=== PATIENT | female | born 1995 | race Caucasian/White ===

== ENCOUNTER 2017-08-07 23:16 | Emergency (ER) | payer BC ==
[2017-08-07 23:22] VITALS: BMI 32.4
[2017-08-07] MEDS ORDERED: TORADOL 60 MG VIAL IM ONE (23:30)
[2017-08-07] MEDS ORDERED: PHENERGAN INJ 25 MG IM ONE (23:31)
--- NOTE | 2017-08-07 23:35 | DR.GENAD ---
HPI - PCP Primary Care Physician: mejia - HPI Comment HPI Comment: Headache since about 2100 hrs. while in [place] this evening. Location is occipital and radiates to frontal areal. She has associated nausea but no vomitting. There was no changes in vision. She states she passed out for a few minutes. There was no seizure activity or incontinence of bladder or feces. She has a hx. headaches and has Fioricet to take q 8 hrs. prn. She had taken a dose at 2120 hrs. - Complaint/Symptoms Chief Complaint:: pt c/o headache so bad it made her pass out for about 4 or 5 minutes - Nurses notes reviewed Nurses Notes Review: Yes - Source History Provided: Patient - Mode of Arrival Mode of Arrival: Ambulatory - Timing Onset of Chief Complaint: 08/07/17 - Modifying Factors Worsens:: nothing Improves:: nothing - Associated Signs and Symptoms Associated Signs and Symptoms: nausea PMH - PMH Past Medical History: Yes Past Medical History: Migraines, Headaches Past Surgical History: Yes Surgical History: Appendectomy, Cholecystectomy - Family History History of Family Medical Conditions: Yes Family Medical History: Diabetes Mellitus, Hypertension - Social History Do you use any recreational Drugs:: No Lives With: Family Lives Where: Home - infectious screening In the last 2 months have you had wt loss of >10#?: NO Have you had fever, night sweats or hemotysis?: No Have you traveled outside the country in the last 6 months?: No Isolation: Standard ROS - Review of Systems Constitutional: No Symptoms Reported Eyes: No Symptoms Reported ENTM: No Symptoms Reported Respiratoy: No Symptoms Reported Cardiovascular: No Symptoms Reported Gastrointestinal/Abdominal: Nausea Genitourinary: No Symptoms Reported Neurological: Headache Musculoskeletal: No Symptoms Reported Integumentary: No Symptoms Reported Hematologic/Lymphatic: No Symptoms Reported Endocrine: No Symptoms Reported Psychiatric: No Symptoms Reported All Other Systems: Reviewed and Negative PE - Vital Signs Vitals: Temperature 98.3 F Pulse Rate 92 Respiratory Rate 18 Blood Pressure [Left Arm] 135/80 Blood Pressure 141/89 O2 Sat by Pulse Oximetry 98 - General Limitations: No Limitations General Appearance: Alert, In No Apparent Distress - Head Head Exam: Normal Inspection - Eyes Eye exam: Normal Appearance, PERRL, EOMI - ENT ENT Exam: Normal Exam - Neck Neck Exam: Normal Inspection, Full ROM - Chest Chest Inspection: Normal Inspection - Respiratory Respiratory Exam: Normal Lung Sounds Bilat - Cardiovascular Cardiovascular Exam: Regular Rate, Normal Rhythm, Normal Heart Sounds - Abdominal Exam Abdominal Exam: Normal Inspection, Normal Bowel Sounds, Soft - Extremities Extremities Exam: Normal Inspection - Back Back Exam: Normal Inspection - Neurologic Neurological Exam: Alert, Oriented X3, CN II-XII Intact - Psychiatric Psychiatric Exam: Normal Affect, Normal Mood - Skin Skin Exam: Warm, Dry, Intact, Normal Color Course - Reevaluation 1st: Unchanged 2nd: Unchanged (she states she still has the headache but yet refused the analgesic offered.) - Education/Counseling Education/Counseling: Patient, Family Educated On: Treatment, Diagnosis, Needs for Follow Up - Diagnosis Discharge Problem: Headache, Syncope and collapse - Discharge Plan Disposition: 01 HOME, SELF-CARE Condition: Stable - Follow ups/Referrals Follow ups/Referrals: SPENSER BROWN [Primary Care Provider] - 3 days - Instructions Instructions: Migraine Headache, [id number]
[2017-08-07] MEDS ORDERED: TORADOL 60 MG VIAL ONE (23:48)
[2017-08-07] MEDS ORDERED: PHENERGAN INJ 25 MG ONE (23:48)
[2017-08-08] MEDS ORDERED: NUBAIN INJ 200 MG VIAL MULTIDOSE IVP ONE (00:22)
[2017-08-08] MEDS ORDERED: ZOFRAN INJ 4 MG VIAL IVP ONE (00:24)
[2017-08-08] MEDS ORDERED: NUBAIN INJ 10 ONE (02:29)
[2017-08-08] MEDS ORDERED: ZOFRAN INJ 4 MG VIAL ONE (02:29)
[2017-08-08] MEDS ORDERED: NORCO 7.5/325 MG TAB PO ONE (02:35)
[2017-08-08] MEDS ORDERED: NORCO 7.5/325 MG TAB ONE (02:37)
[2017-08-08 03:10] VITALS: BP 123/76
== END 2017-08-08 03:10 | disposition home or self-care (01) ==
LOC: ER 23:25
DX: R51 Headache (principal); R55 Syncope and collapse
CPT/HCPCS: 96372; 99282; J1885; J2300; J2405; J2550

== ENCOUNTER → 2017-08-24 | Outpatient (CLI) | payer BC ==
[2017-08-08 03:10] VITALS: BP 123/76
--- NOTE | 2017-08-24 13:13 | MRI ---
STUDY: MRI OF THE BRAIN WITHOUT GADOLINIUM History: Migraines. Chronic headaches. Comparison: Head CT dated May 27, 2016. Technique: Multiplanar multi-sequence MRI of the brain was obtained utilizing standard departmental p rotocol. Sagittal and axial T1, axial T2, FLAIR, diffusion (DWI/ADC) images through the brain were pe rformed. Findings: The sulci, cisterns, and ventricles are age appropriate. There is a single punctate focus o f T2 prolongation in the left frontal centrum semiovale. This is a nonspecific finding which may be s een with demyelination or microangiopathy in a patient of this age. This may also be seen in neurolog ical in normal individuals. There is no evidence of acute territorial infarction, hemorrhage, mass, m ass effect or midline shift. There are no abnormal intra-axial or extra-axial fluid collections. The major intracranial vascular flow voids are intact. IMPRESSION: 1. No evidence of acute intracranial abnormality. 2. Solitary nonspecific punctate focus of T2 prolongation in the left posterior frontal centrum semi ovale. Reported By:
== END ==
LOC: RAD 12:06
PROVIDERS: ATTEND Nurse Practitioner Family
DX: G43.909 Migraine, unspecified, not intractable, without status migrainosus (principal)
CPT/HCPCS: 70551

== ENCOUNTER → 2017-11-29 | Outpatient (CLI) | payer BC ==
--- NOTE | 2017-11-30 07:35 | RAD ---
Examination: Cervical spine, 6 views History: Neck pain Findings: Normal alignment of C1-C6. Disc spaces are preserved. The normal curvature is straightened. No fracture or neural foramen impingement noted. On the available open-mouth view of the odontoid, t he dens is obscured. Normal prevertebral soft tissues. Impression: 1. Straightening of normal curvature may indicate neck pain or muscle spasm. 2. Incomplete lateral visualization of cervicothoracic junction. Incomplete frontal evaluation of the atlantoaxial complex. 3. Normal otherwise. Reported By:
== END ==
LOC: RAD 16:10
PROVIDERS: ATTEND Nurse Practitioner Family
DX: M54.2 Cervicalgia (principal)
CPT/HCPCS: 72050

== ENCOUNTER → 2017-12-26 | Outpatient (CLI) | payer BC ==
[~2017-12-26] MED LIST: NS 100 ML IV 100 ML IV ONE
--- NOTE | 2017-12-27 08:34 | CT ---
HISTORY: Concussion with loss of consciousness. Headaches. Study: CT angiogram brain with and without IV contrast. Comparison: Head CT dated 05/27/2016. MR brain dated 08/24/2017. Technique: Multiple axial images of the brain were obtained from the skull base to the vertex both prior to and after the uneventful administration of intravenous contrast. Reformatted images in the sagittal and c oronal planes were performed. 3D images of the intracranial arterial vasculature were performed as we ll. Findings: Head CT: No acute intraparenchymal hemorrhage or mass can be identified. No extra-axial fluid collections are seen. No alteration in the attenuation of the brain parenchyma can be identified to suggest acute o r subacute ischemic change. The ventricular system is symmetric and nondilated. The extracranial st ructures are grossly unremarkable. CTA: The anterior circulation demonstrates normal anatomy without significant atherosclerotic disease or f low-limiting stenosis. There is a patent anterior communicating artery. The right vertebral artery is dominant and intracranial portion of the left vertebral artery is diminutive. The basilar artery is patent without evidence of flow-limiting stenosis. Both P1 segments are patent and there are patent p osterior communicating arteries bilaterally. There is no evidence of dissection or aneurysm within th e anterior or posterior circulation. The transverse sinus on the right is dominant and the transverse sinus on the left is diminutive. IMPRESSION: No acute intracranial process can be identified. Diminutive intracranial vertebral artery and transverse sinus on the left. Otherwise, no additional f low-limiting stenosis is evident within the anterior or posterior arterial circulation. Posterior com municating arteries are patent bilaterally. Reported By:
== END | disposition home or self-care (01) ==
LOC: RAD 15:24
PROVIDERS: ATTEND Psychiatry & Neurology Neurology
DX: S06.0X9S Concussion with loss of consciousness of unspecified duration, sequela (principal); X58.XXXS Exposure to other specified factors, sequela
CPT/HCPCS: 70496; A4222